=== PATIENT | female | born 1965 | race Caucasian/White ===

== ENCOUNTER 2018-11-26 16:29 | Emergency (ER) | payer BC, SELFPAY ==
[2018-11-26] MEDS ORDERED: ALBUTEROL 2.5 MG/3 ML NEB SOL ONE (17:05)
[2018-11-26] MEDS ORDERED: IPRATROPIUM BROM 0.5MG/2.5ML ONE (17:06)
[2018-11-26] MEDS ORDERED: predniSONE 20 MG TAB ONE (17:06)
--- NOTE | 2018-11-26 17:09 | RAD REPORT ---
EXAM DESCRIPTION: RAD - Chest Pa And Lat (2 Views) - 11/26/2018 5:04 pm CLINICAL HISTORY: Cough;SOB Chest pain. COMPARISON: No comparisons TECHNIQUE: PA and lateral views of the chest were obtained. FINDINGS: The lungs are hyperexpanded compatible with COPD. The heart is upper limit of normal in si ze. No fracture or aggressive bony process. IMPRESSION: COPD without acute process identified.
--- NOTE | 2018-11-26 17:23 | EKG ---
Test Date: 2018-11-26 Test Time: 16:53:58 Director Public Service: MENG MEASUREMENT RESULTS: Intervals: Rate: 89 MT: 118 QRSD: 88 QT: 362 QTc: 440 [place]: P: 27 MT: 118 QRS: 93 T: 71 INTERPRETIVE STATEMENTS: Normal sinus rhythm Rightward axis Borderline ECG No previous ECG available for comparison Electronically Signed On 11-26-18 17:23:20 SMALL ANIMAL VETERINARIAN by Jurgen Zarate
[2018-11-26 17:49] LABS: Absolute Lymphocytes (CBC) 3.2 K/uL (0.7-4.9); Absolute Monocytes 0.6 K/uL (0.1-1.3); Absolute Neutrophil 5.5 K/uL (1.8-8.0); Basophils % 1.2 % (0-1.3); Eosinophils % 2.2 % (0-4.4); Hematocrit 44.8 % (36.0-45.0); Lymphocytes % 33.1 % (15.3-44.8); Monocytes % 6.6 % (3.3-12.3); RBC Red Blood Cell Count 5.28 M/uL (3.86-4.86)
[2018-11-26 17:50] LABS: Protime INR 1.03
[2018-11-26 17:51] LABS: ALT/SGPT 21 U/L (12-78); AST/SGOT 12 U/L (15-37); Albumin 4.1 g/dL (3.4-5.0); Alkaline Phosphatase 85 U/L (45-117); BUN Blood Urea Nitrogen 14 mg/dL (7-18); Bicarbonate 25 mmol/L (21-32); Bilirubin Direct < 0.1 mg/dL (0-0.2); Bilirubin Total 0.3 mg/dL (0.2-1.0); Glucose Level 94 mg/dL (74-106); Magnesium 2.1 mg/dL (1.8-2.4); NT PRO-BNP 60 pg/mL (<125); Potassium 3.5 mmol/L (3.5-5.1); Sodium Level 138 mmol/L (136-145); Troponin (Emerg Dept Use Only) < 0.02 ng/mL (0.0-0.045)
--- NOTE | 2018-11-26 19:12 | ER ---
Nurse's Notes [facility] Name: Neetu Mcconnell Age: 53 yrs Sex: Female : 1965 Arrival Date: 11/26/2018 Time: 16:33 Bed 20 Private MD: None, None Diagnosis: Chronic obstructive pulmonary disease with (acute) exacerbation Presentation: 11/26 16:46 Presenting complaint: Patient states: i have this cough for a couple of days now, hard hj cough; denies fever and chills; reports being sore in chest area from coughing;. Transition of care: patient was not received from another setting of care. Onset of symptoms was November 26, 2018. Risk Assessment: Do you want to hurt yourself or someone else? Patient reports no desire to harm self or others. Initial Sepsis Screen: Does the patient meet any 2 criteria? Yes Does the patient have a suspected source of infection? Yes:. Care prior to arrival: None. 16:46 Method Of Arrival: Ambulatory 16:46 Acuity: JC 3 hj Triage Assessment: 16:49 General: Appears in no apparent distress. uncomfortable, Behavior is calm, cooperative, hj appropriate for age. Respiratory: Reports cough that is Onset: The symptoms/episode began/occurred couple of days now;, the patient has mild shortness of breath. 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 - Social history:: Smoking status: Patient uses tobacco products, smokes one pack cigarettes per day. Patient/guardian denies using alcohol. - Ebola Screening: : Patient negative for fever greater than or equal to 101.5 degrees Fahrenheit, and additional compatible Ebola Virus Disease symptoms Patient denies exposure to infectious person Patient denies travel to an Ebola-affected area in the 21 days before illness onset. Screenin:48 Abuse screen: Denies threats or abuse. Denies injuries from another. Nutritional hj screening: No deficits noted. Tuberculosis screening: No symptoms or risk factors identified. Fall Risk. Assessment: 16:48 Pain: Complains of pain in chest. Cardiovascular: Rhythm is regular. Respiratory: hj Airway is patent Respiratory effort is even, unlabored, Respiratory pattern is regular, symmetrical, 16:48 General: Appears in no apparent distress. uncomfortable, Behavior is calm, cooperative, hj appropriate for age. Neuro: Level of Consciousness is awake, alert, obeys commands, Oriented to person, place, time, situation, Appropriate for age. GI: No signs and/or symptoms were reported involving the gastrointestinal system. : No signs and/or symptoms were reported regarding the genitourinary system. EENT: No signs and/or symptoms were reported regarding the EENT system. Derm: No signs and/or symptoms reported regarding the dermatologic system. Musculoskeletal: No signs and/or symptoms reported regarding the musculoskeletal system. 18:55 Reassessment: Patient and/or family updated on plan of care and expected duration. Pain hj level reassessed. Patient is alert, oriented x 3, equal unlabored respirations, skin warm/dry/pink. Patient states feeling better. Patient states symptoms have improved. Vital Signs: 16:45 BP 127 / 73; Pulse 89; Resp 18; Temp 98.6(O); Pulse Ox 97% on R/A; Weight 63.5 kg; hj Height 5 ft. 7 in. (170.18 cm); 17:32 BP 116 / 69; Pulse 90; Resp 18; Pulse Ox 97% on R/A; hj 18:55 BP 118 / 70; Pulse 92; Resp 18; Pulse Ox 98% on R/A; hj 20:32 BP 132 / 62; Pulse 93; Resp 20; Temp 98.4(O); Pulse Ox 94% on R/A; Pain 3/10; fc 16:45 Body Mass Index 21.93 (63.50 kg, 170.18 cm) ED Course: 16:33 Patient arrived in ED. mr 16:33 None, None is Private Physician. mr 16:42 Navarro Arias PA is PHCP. cp 16:42 Katelin Leon MD is Attending Physician. cp 16:45 Adan Arthur RN is Primary Nurse. hj 16:47 Triage completed. hj 16:50 Arm band placed on right wrist. hj 16:50 Patient has correct armband on for positive identification. Bed in low position. Call hj light in reach. Side rails up X 1. Adult w/ patient. 17:01 EKG done, by breeder hen service technician. reviewed by Navarro GRANGER. sm3 17:08 XRAY Chest Pa And Lat (2 Views) In Process Unspecified. EDMS 17:24 Influenza Screen (a \T\ B) Sent. pc1 17:24 Initial lab(s) drawn, by me, sent to lab. Inserted saline lock: 20 gauge in right hj forearm, using aseptic technique. Blood collected. 20:34 No provider procedures requiring assistance completed. IV discontinued, intact, fc bleeding controlled, No redness/swelling at site. Pressure dressing applied. Administered Medications: 16:50 Drug: Albuterol - atroVENT (3:1) (2.5 mg - 0.5 mg) 3 ml Route: Nebulizer; 17:30 Follow up: Response: No adverse reaction pc1 16:50 Drug: predniSONE 60 mg Route: PO; 17:29 Follow up: Response: No adverse reaction pc1 Outcome: 19:11 Discharge ordered by MD. cp 20:34 Discharged to home ambulatory. 20:34 Condition: good 20:34 Discharge instructions given to patient, Instructed on discharge instructions, follow up and referral plans. medication usage, Demonstrated understanding of instructions, follow-up care, medications, Prescriptions given X 3. 20:36 Patient left the ED. fc Signatures: Dispatcher [employer] EDUT Shanna BocanegraAna, RN RN Adan Arthur RN RN Navarro Arias PA PA cp Montes, Shakira 3 Abel Bro, RN RN pc1 Corrections: (The following items were deleted from the chart) 17:32 16:45 BP 116 / 69; Pulse 90bpm; Resp 18bpm; Pulse Ox 97% RA; hj hj
--- NOTE | 2018-11-26 19:12 | EDPHYS ---
Physician Documentation [facility] Name: Neetu Mcconnell Age: 53 yrs Sex: Female : 1965 Arrival Date: 11/26/2018 Time: 16:33 Bed 20 Private MD: None, None ED Physician Katelin Leon HPI: 11/26 17:00 This 53 yrs old Female presents to ER via Ambulatory with complaints of cp Breathing Difficulty. 17:00 The patient has shortness of breath with light activity. Onset: The symptoms/episode cp began/occurred 2 day(s) ago. Duration: The symptoms are continuous. Associated signs and symptoms: Pertinent positives: chest pain, non-productive cough, Pertinent negatives: diaphoresis, dizziness, fever, hemoptysis, visual changes, vomiting, weakness. Severity of symptoms: in the emergency department the symptoms are unchanged despite home interventions. 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 - Social history:: Smoking status: Patient uses tobacco products, smokes one pack cigarettes per day. Patient/guardian denies using alcohol. - Ebola Screening: : Patient negative for fever greater than or equal to 101.5 degrees Fahrenheit, and additional compatible Ebola Virus Disease symptoms Patient denies exposure to infectious person Patient denies travel to an Ebola-affected area in the 21 days before illness onset. ROS: 17:05 Constitutional: Negative for body aches, chills, fever, poor PO intake. cp 17:05 Eyes: Negative for injury, pain, redness, and discharge. cp 17:05 ENT: Negative for drainage from ear(s), ear pain, sore throat, difficulty swallowing, difficulty handling secretions, hoarseness. 17:05 Neck: Negative for pain with movement, pain at rest, stiffness, tenderness, bony tenderness. 17:05 Cardiovascular: Positive for chest pain, with cough, Negative for edema, orthopnea, palpitations. 17:05 Respiratory: Positive for cough, with no reported sputum, shortness of breath, on exertion. wheezing, Negative for hemoptysis. 17:05 Abdomen/GI: Negative for abdominal pain, nausea, vomiting, and diarrhea, anorexia, black/tarry stool, rectal bleeding. 17:05 Back: Negative for pain at rest, pain with movement, radiated pain. 17:05 : Negative for urinary symptoms. 17:05 Skin: Negative for cellulitis, rash. 17:05 Neuro: Negative for altered mental status, dizziness, headache, syncope, near syncope, weakness. 17:05 All other systems are negative. Exam: 17:10 Constitutional: The patient appears in no acute distress, alert, awake, cp non-diaphoretic, non-toxic, well developed, well nourished. 17:10 Head/Face: Normocephalic, atraumatic. Eyes: Pupils equal round and reactive to light, cp extra-ocular motions intact. Lids and lashes normal. Conjunctiva and sclera are non-icteric and not injected. Cornea within normal limits. Periorbital areas with no swelling, redness, or edema. 17:10 ENT: External ear(s): are unremarkable, Ear canal(s): are normal, clear, TM's: bulging, is not appreciated, bilaterally, dullness, bilaterally, erythema, is not appreciated, bilaterally, Nose: is normal, Mouth: Lips: moist, Oral mucosa: moist, Posterior pharynx: Airway: no evidence of obstruction, patent, Tonsils: no enlargement, no exudate, Uvula: midline, swelling, is not appreciated, erythema, that is mild, exudate, is not appreciated. 17:10 Neck: ROM/movement: is normal, is supple, without pain, no range of motions limitations, no meningismus, no nuchal rigidity. 17:10 Chest/axilla: Inspection: normal, Palpation: is normal, no crepitus, no tenderness. 17:10 Cardiovascular: Rate: normal, Rhythm: regular, Edema: is not appreciated, JVD: is not appreciated. 17:10 Respiratory: the patient does not display signs of respiratory distress, Respirations: normal, no use of accessory muscles, no retractions, no splinting, no tachypnea, labored breathing, is not present, Breath sounds: decreased breath sounds, that are mild, throughout, rhonchi, are not appreciated, stridor, is not appreciated, wheezing: expiratory that is mild, is heard diffusely. 17:10 Abdomen/GI: Inspection: abdomen appears normal, Bowel sounds: active, all quadrants, Palpation: abdomen is soft and non-tender, in all quadrants. 17:10 Back: pain, is absent, ROM is normal. 17:10 Skin: cellulitis, is not appreciated, no rash present. 17:10 Neuro: Orientation: to person, place \T\ time. Mentation: is normal, Cerebellar function: is grossly normal, Motor: moves all fours, strength is normal, Sensation: is normal. 17:20 ECG was reviewed by the Attending Physician. Vital Signs: 16:45 BP 127 / 73; Pulse 89; Resp 18; Temp 98.6(O); Pulse Ox 97% on R/A; Weight 63.5 kg; hj Height 5 ft. 7 in. (170.18 cm); 17:32 BP 116 / 69; Pulse 90; Resp 18; Pulse Ox 97% on R/A; hj 18:55 BP 118 / 70; Pulse 92; Resp 18; Pulse Ox 98% on R/A; hj 20:32 BP 132 / 62; Pulse 93; Resp 20; Temp 98.4(O); Pulse Ox 94% on R/A; Pain 3/10; fc 16:45 Body Mass Index 21.93 (63.50 kg, 170.18 cm) MDM: 16:42 Patient medically screened. cp 17:00 Differential diagnosis: asthma, Bronchitis CHF exacerbation, Chronic Obstructive cp Pulmonary Disease Myocardial Infarction pneumonia, Pneumothorax pulmonary edema, Pulmonary Embolism Unstable Angina. 19:10 Data reviewed: vital signs, nurses notes, lab test result(s), EKG, radiologic studies, cp plain films. 19:10 Test interpretation: by ED physician or midlevel provider: ECG, plain radiologic cp studies. Counseling: I had a detailed discussion with the patient and/or guardian regarding: the historical points, exam findings, and any diagnostic results supporting the discharge/admit diagnosis, lab results, radiology results, the need for outpatient follow up, a family practitioner, to return to the emergency department if symptoms worsen or persist or if there are any questions or concerns that arise at home. Response to treatment: the patient's symptoms have markedly improved after treatment, and as a result, I will discharge patient. 11/26 16:48 Order name: Basic Metabolic Panel; Complete Time: 17:57 cp 02/11 17:58 Interpretation: Normal except: GFR 68. cp 02/ 16:48 Order name: CBC with Diff; Complete Time: 17:57 cp 02/11 17:58 Interpretation: Normal except: RBC 5.28; MCV 84.9; MCH 27.8. cp 02/ 16:48 Order name: LFT's; Complete Time: 17:57 cp 11/26 17:59 Interpretation: Normal except: AST 12; GLOB 3.9. cp / 16:48 Order name: Magnesium; Complete Time: 17:57 cp / 16:48 Order name: NT PRO-BNP; Complete Time: 17:57 cp 11/26 18:35 Interpretation: Within normal limits: NT PRO-BNP 60. cp / 16:48 Order name: PT-INR; Complete Time: 17:57 cp 11/26 16:48 Order name: Troponin (emerg Dept Use Only); Complete Time: 17:57 cp 11/26 18:35 Interpretation: TROPED < 0.02; Reviewed. 11/26 16:48 Order name: EKG; Complete Time: 17:01 cp 11/26 16:48 Order name: Cardiac monitoring; Complete Time: 16:50 cp 11/26 16:49 Order name: Influenza Screen (a \T\ B); Complete Time: 17:57 cp 11/26 16:49 Order name: XRAY Chest Pa And Lat (2 Views); Complete Time: 17:45 cp 11/26 17:45 Interpretation: Report reviewed. 11/26 16:48 Order name: EKG - Nurse/Tech; Complete Time: 16:53 cp 11/26 16:48 Order name: IV Saline Lock; Complete Time: 17:25 cp 11/26 16:48 Order name: Labs collected and sent; Complete Time: 17:24 cp / 16:48 Order name: O2 Per Protocol; Complete Time: 16:51 cp 11/26 16:48 Order name: O2 Sat Monitoring; Complete Time: 16:51 cp EC:20 Rate is 89 beats/min. Rhythm is regular. [place] interval is normal. QRS interval is normal. cp QT interval is normal. Interpreted by me. Reviewed by me. Administered Medications: 16:50 Drug: Albuterol - atroVENT (3:1) (2.5 mg - 0.5 mg) 3 ml Route: Nebulizer; 17:30 Follow up: Response: No adverse reaction pc1 16:50 Drug: predniSONE 60 mg Route: PO; hj 17:29 Follow up: Response: No adverse reaction pc1 Disposition: 11/26/18 19:11 Discharged to Home. Impression: Chronic obstructive pulmonary disease with (acute) exacerbation. - Condition is Stable. - Discharge Instructions: How to Use an Inhaler, Chronic Obstructive Pulmonary Disease Exacerbation. - Prescriptions for Tessalon Perles 100 mg Oral Capsule - take 1 capsule by ORAL route every 8 hours As needed; 20 capsule. Prednisone 20 mg Oral Tablet - take 2 tablet by ORAL route once daily for 5 days; 10 tablet. Albuterol Sulfate 90 mcg/actuation - inhale 1-2 puff by INHALATION route every 4-6 hours; 1 Inhaler. - Medication Reconciliation Form, Thank You Letter, Antibiotic Education, Prescription Opioid Use form. - Follow up: Private Physician; When: 2 - 3 days; Reason: Recheck today's complaints. - Problem is new. - Symptoms have improved. Addendum: 11/30/2018 19:07 Co-signature as Attending Physician, Katelin Leon MD. m a2 Signatures: Dispatcher [employer] [facility] Ana Puga RN RN fc Adan Arthur RN RN Navarro Arias PA PA cp Katelin Leon MD MD ma2 Abel Bro RN pc1 Corrections: (The following items were deleted from the chart) 11/26 17:08 17:01 Chest Single View+RAD.RAD.BRZ ordered. [facility] 20:36 19:11 11/26/2018 19:11 Discharged to Home. Impression: Chronic obstructive pulmonary fc disease with (acute) exacerbation. Condition is Stable. Forms are Medication Reconciliation Form, Thank You Letter, Antibiotic Education, Prescription Opioid Use. Follow up: Private Physician; When: 2 - 3 days; Reason: Recheck today's complaints. Problem is new. Symptoms have improved. cp
[2018-11-26 21:22] VITALS: BP 132/62; TEMP 98.4; O2SAT 94
== END 2018-11-26 20:36 | disposition home or self-care (01) ==
LOC: ER 16:29
DX: J44.1 Chronic obstructive pulmonary disease with (acute) exacerbation (principal); F17.210 Nicotine dependence, cigarettes, uncomplicated
CPT/HCPCS: 36415; 71046; 80048; 80076; 83735; 83880; 84484; 85025; 85610; 87804; 93005; 94640; 99284; J7512

== ENCOUNTER 2025-02-03 09:24 | Emergency (ER) | payer SELFPAY ==
--- OUTSIDE RECORDS SUMMARY | 2025-02-03 09:27 | XMS REPORT | Continuity of Care Document ---
Author Name Unknown Address [address] [place] [address] [place] [id number] Care Team Providers Care Spa Host Name Role Phone [email or web address] Attending Clinician Unavaila ble [email or web address] Admitting Clinician Unavaila ble Encounters Start Date/Time End Date/Time Encounter Type Admission Type Attending Clinicians Care Facility Care Department Encounter ID Source 2023-08-11 00:00:00 2023-08-11 00:00:00 Outpatient [email or web address] [facility] [id number] [facility]
[2025-02-03] MEDS ORDERED: ALBUTEROL 2.5 MG/3 ML NEB SOL ONE (09:38)
[2025-02-03] MEDS ORDERED: IPRATROPIUM BROM 0.5MG/2.5ML ONE (09:38)
[2025-02-03 10:10] LABS: Absolute Eosinophils 0.1 K/uL (0-0.5); Absolute Lymphocytes (CBC) 1.9 K/uL (0.7-4.9); Absolute Monocytes 0.6 K/uL (0.1-1.3); Absolute Neutrophil 7.2 K/uL (1.8-8.0); Basophils % 0.3 % (0-1.3); Eosinophils % 1.2 % (0-4.4); Hematocrit 41.6 % (36.0-45.0); Hemoglobin 14.1 g/dL (12.0-15.0); Lymphocytes % 18.7 % (15.3-44.8); MCH 28.9 pg (27.0-35.0); MPV 8.8 fL (7.6-11.3); Monocytes % 6.6 % (3.3-12.3); Neutrophils % 73.2 % (41.7-73.7); Nucleated Red Blood Cells % 0.1 % (0-0); Platelets 202 thou/uL (152-406); RBC Red Blood Cell Count 4.89 M/uL (3.86-4.86); Red Cell Distribution Width 13.2 % (12.1-15.2)
--- NOTE | 2025-02-03 10:17 | RAD REPORT ---
EXAM: Chest Single View HISTORY: 60 years Female DYSPNEA COMPARISON: 10/19/2023 FINDINGS: LUNGS/PLEURA: The lungs are clear. No pleural effusions or pneumothorax. No pulmonary edema. CARDIAC/MEDIASTINUM: The cardiac silhouette is within normal limits. UPPER ABDOMEN: No significant abnormality. BONES: No acute abnormality. LINES/TUBES/OTHER: N/A IMPRESSION: No evidence of acute cardiopulmonary disease.
[2025-02-03 10:21] LABS: PT Prothrombin Time 12.5 SECONDS (10-13.0); Protime INR 1.1
[2025-02-03 10:29] LABS: Influenza A Ag Negative; Influenza B Ag Negative; SARS-CoV-2 Antigen Rapid Res Negative (Negative)
[2025-02-03 11:19] LABS: Albumin 3.4 g/dL (3.4-5.0); Albumin/Globulin Ratio 0.9 (1.1-1.8); Bilirubin Direct 0.2 mg/dL (0-0.2); Bilirubin Indirect, Calculated 0.6 mg/dL (0.2-0.8); Bilirubin Total 0.8 mg/dL (0.2-1.0); Magnesium 2.1 mg/dL (1.6-2.4); Protein, Total 7.4 g/dL (6.4-8.2); Troponin High Sensitivity 4.2 pg/mL (<58.9)
--- NOTE | 2025-02-03 11:23 | ER ---
Nurse's Notes [facility] Name: Neetu Mcconnell Age: 60 yrs Sex: Female : 1965 Arrival Date: 02/03/2025 Time: 09:24 Bed 4 Private MD: Diagnosis: Acute bronchitis, unspecified Presentation: 02/03 09:35 Chief complaint: Patient states: she has been having a cough, and "not feeling well" ap3 since 01/30/25. Patient reports that she has been coughing so much is it making her stomach hurt as well. Coronavirus screen: Client presents with at least one sign or symptom that may indicate coronavirus-19. Ebola Screen: No symptoms or risks identified at this time. Initial Sepsis Screen: Does the patient meet any 2 criteria? No. Patient's initial sepsis screen is negative. Does the patient have a suspected source of infection? No. Patient's initial sepsis screen is negative. Risk Assessment: Do you want to hurt yourself or someone else? Patient reports no desire to harm self or others. Onset of symptoms was January 30, 2025. 09:35 Method Of Arrival: Ambulatory ap3 09:35 Acuity: JC 3 ap3 Triage Assessment: 09:36 General: Appears in no apparent distress. Behavior is calm, cooperative, appropriate ap3 for age. Pain: Complains of pain in abdomen. Neuro: Level of Consciousness is awake, alert, obeys commands, Oriented to person, place, time, situation, Appropriate for age. Cardiovascular: Patient's skin is warm and dry. Respiratory: Reports cough that is dry, Airway is patent Respiratory effort is even, unlabored, Onset: The symptoms/episode began/occurred gradually. 12:04 Respiratory: the patient has mild shortness of breath. cm10 Historical: - Allergies: 09:36 No Known Allergies; ap3 - Home Meds: 09:36 None [Active]; ap3 - PMHx: 09:36 None; ap3 - Immunization history:: Client reports receiving the 2nd dose of the Covid vaccine. - Infectious Disease History:: Denies. - Social history:: Smoking status: Patient reports the use of cigarette tobacco products, smokes one pack cigarettes per day. Screenin:37 [facility] ED Fall Risk Assessment (Adult) History of falling in the last 3 months, ap3 including since admission No falls in past 3 months (0 pts) Confusion or Disorientation No (0 pts) Intoxicated or Sedated No (0 pts) Impaired Gait No (0 pts) Mobility Assist Device Used No (0 pt) Altered Elimination No (0 pt) Score/Fall Risk Level 0 - 2 = Low Risk Oriented to surroundings, Maintained a safe environment, Educated pt \\T\\ family on fall prevention, incl call for assistance when getting out of bed, Assessed \\T\\ reinforced patient's understanding of fall precautions, Hourly rounding (assess needs \\T\\ fall precautionary measures) done, Used ambulatory aids as needed (educated on \\T\\ assisted with). Abuse screen: Denies threats or abuse. Nutritional screening: No deficits noted. Tuberculosis screening: No symptoms or risk factors identified. Assessment: 10:45 General: Appears in no apparent distress. comfortable, Behavior is calm, cooperative. cm10 Neuro: No deficits noted. Level of Consciousness is awake, alert, obeys commands, Oriented to person, place, time, situation, Appropriate for age. Cardiovascular: Rhythm is regular. Respiratory: Reports shortness of breath Airway is patent Respiratory effort is even, unlabored, Respiratory pattern is regular, symmetrical, Breath sounds with wheezes bilaterally. Derm: Skin is pink, warm \\T\\ dry. Musculoskeletal: No deficits noted. Range of motion: intact in all extremities. 11:45 Reassessment: Patient appears in no apparent distress at this time. Patient and/or cm10 family updated on plan of care and expected duration. Pain level reassessed. Patient is alert, oriented x 3, equal unlabored respirations, skin warm/dry/pink. Patient states feeling better. Patient states symptoms have improved. Vital Signs: 09:35 BP 128 / 77; Pulse 88; Resp 19; Temp 98.2(O); Pulse Ox 99% on R/A; Weight 57.61 kg (M); ap3 Height 5 ft. 7 in. ; 10:46 BP 111 / 60; Pulse 97; Resp 18; Pulse Ox 94% on R/A; cm10 11:45 BP 100 / 52; Pulse 96; Resp 18; Pulse Ox 97% ; cm10 09:35 Body Mass Index 19.89 (57.61 kg, 170.18 cm) ap3 ED Course: 09:26 Patient arrived in ED. im 09:28 Stacy Lamb PA-C is PHCP. sb4 09:28 Donnie Garcia MD is Attending Physician. sb4 09:35 Maritza Gruber, RN is Primary Nurse. jl7 09:36 Triage completed. ap3 09:38 Arm band placed on right wrist. ap3 10:06 Primary Nurse role handed off by Maritza Gruber, RN cm10 10:06 Mikayla Mendez, RN is Primary Nurse. cm10 10:06 Initial lab(s) drawn, by me, sent to lab. EKG done, by ED staff, reviewed by Stacy Lamb PA-C COVID swab sent to lab. Flu and/or RSV swab sent to lab. Missed attempt(s): 20 gauge in left antecubital area. Bleeding controlled, band aid applied, catheter tip intact. 10:13 XRAY Chest (1 view) In Process Unspecified. EDMS 10:42 Lab(s) recollected, by me, sent to lab. Inserted saline lock: 20 gauge in right cm10 forearm, using aseptic technique. Blood collected. Flushed with 10 mL NS. 10:46 Patient has correct armband on for positive identification. Placed in gown. Bed in low cm10 position. Call light in reach. Side rails up X 1. Client placed on continuous cardiac and pulse oximetry monitoring. NIBP monitoring applied. playground monitor on. 12:03 Provided Education on: Follow-up instructions. cm10 12:04 No provider procedures requiring assistance completed. IV discontinued, intact, cm10 bleeding controlled, No redness/swelling at site. Pressure dressing applied. Administered Medications: 10:08 Drug: DuoNeb Nebulize (3:1) (2.5 mg - 0.5 mg) 3 ml Nebulizer once Route: Nebulizer; jl7 10:30 Follow up: Response: No adverse reaction cm10 11:33 Drug: Potassium PO Effervescent Tablet 50 mEq PO once; dissolve in 4 ounces of water or aa5 juice Route: PO; 12:03 Follow up: Response: No adverse reaction cm10 Medication: 10:46 VIS not applicable for this client. cm10 Outcome: 11:23 Discharge ordered by . sb4 12:04 Discharged to home ambulatory, with significant other, cm10 12:04 Condition: good 12:04 Discharge instructions given to patient, Instructed on discharge instructions, follow up and referral plans. medication usage, Demonstrated understanding of instructions, follow-up care, medications, Prescriptions given X 3, 12:04 Patient left the ED. cm10 Signatures: Dispatcher [employer] EDMS Daysi Crabtree, RN RN [email or web address] Maritza Gruber RN RN [email or web address] Avis Ruiz RN RN [email or web address] Stacy Lamb, PA-C PA-C [email or web address] Misa Egan Clarissa RN RN cm10
--- NOTE | 2025-02-03 11:23 | EDPHYS ---
Physician Documentation [facility] Name: Neetu Mcconnell Age: 60 yrs Sex: Female : 1965 Arrival Date: 02/03/2025 Time: 09:24 Bed 4 Private MD: ED Physician Donnie Garcia HPI: 02/03 09:49 This 60 yrs old Female presents to ER via Ambulatory with complaints of Flu Symptoms, sb4 Shortness Of Breath. 09:49 shortness of breath, dry cough, and malaise x 4 days. no fever or chills. no chest sb4 pain, n/v/d. denies sick contacts. does smoke daily, no official diagnosis of COPD, uses inhalers occasionally. Historical: - Allergies: 09:36 No Known Allergies; ap3 - Home Meds: 09:36 None [Active]; ap3 - PMHx: 09:36 None; ap3 - Immunization history:: Client reports receiving the 2nd dose of the Covid vaccine. - Infectious Disease History:: Denies. - Social history:: Smoking status: Patient reports the use of cigarette tobacco products, smokes one pack cigarettes per day. ROS: 09:49 Constitutional: Negative for fever, chills, and weight loss, sb4 09:49 Constitutional: Positive for malaise, 09:49 Respiratory: Positive for cough, with no reported sputum, shortness of breath, 09:49 All other systems are negative, Exam: 09:49 Constitutional: This is a well developed, well nourished patient who is awake, alert, sb4 and in no acute distress. Head/Face: Normocephalic, atraumatic. Eyes: Extra-ocular motions intact. Periorbital areas with no swelling, redness, or edema. ENT: Mucous membranes moist. Cardiovascular: Regular rate and rhythm with a normal S1 and S2. Respiratory: No increased work of breathing, no retractions or nasal flaring. Abdomen/GI: Soft, non-tender, no distension. Skin: Warm, dry with normal turgor. Normal color with no rashes, no lesions, and no evidence of cellulitis. Vital Signs: 09:35 BP 128 / 77; Pulse 88; Resp 19; Temp 98.2(O); Pulse Ox 99% on R/A; Weight 57.61 kg (M); ap3 Height 5 ft. 7 in. ; 10:46 BP 111 / 60; Pulse 97; Resp 18; Pulse Ox 94% on R/A; cm10 11:45 BP 100 / 52; Pulse 96; Resp 18; Pulse Ox 97% ; cm10 09:35 Body Mass Index 19.89 (57.61 kg, 170.18 cm) ap3 MDM: 09:28 Medical Screening Exam initiated sb4 10:09 Differential diagnosis: URI, bronchitis, pneumonia COPD. sb4 11:23 Data reviewed: vital signs, nurses notes, lab test result(s), EKG, radiologic studies, sb4 and as a result, I will discharge patient. Counseling: I had a detailed discussion with the patient and/or guardian regarding the historical points, exam findings, and any diagnostic results supporting the discharge/admit diagnosis, lab results, radiology results, the need for outpatient follow up, for definitive care, to return to the emergency department if symptoms worsen or persist or if there are any questions or concerns that arise at home. 02/03 09:34 Order name: Basic Metabolic Panel; Complete Time: 11:20 02/03 09:34 Order name: CBC with Diff; Complete Time: 10:13 02/03 09:34 Order name: LFT's; Complete Time: 11:20 02/03 09:34 Order name: Magnesium; Complete Time: 11:20 02/03 09:34 Order name: NT PRO-BNP; Complete Time: 11:20 02/03 09:34 Order name: PT-INR; Complete Time: 10:21 02/03 09:34 Order name: Troponin HS; Complete Time: 11:20 02/03 09:34 Order name: COVID-19 Ag + Flu A+B Ag; Complete Time: 10:31 02/03 09:34 Order name: XRAY Chest (1 view); Complete Time: 10:18 02/03 09:34 Order name: Cardiac monitoring; Complete Time: 10:05 02/03 09:34 Order name: EKG - Nurse/Tech; Complete Time: 10:05 02/03 09:34 Order name: IV Saline Lock; Complete Time: 10:41 02/03 09:34 Order name: Labs collected and sent; Complete Time: 10:05 sb4 02/03 09:34 Order name: O2 Per Protocol; Complete Time: 10:05 sb4 02/03 09:34 Order name: O2 Sat Monitoring; Complete Time: 10:05 sb4 02/03 10:24 Order name: Labs - recollect needed: please recollect green top; Complete Time: 10:41 em1 EC:52 Rate is 77 beats/min. Rhythm is regular, Normal Sinus Rhythm. NM interval is normal at sb4 136 msec. QRS interval is normal at 92 msec. QT interval is normal at 386 msec. No Q waves. T waves are Normal. No ST changes noted. Clinical impression: No evidence of ischemia. Interpreted by me. Reviewed by me. Administered Medications: 10:08 Drug: DuoNeb Nebulize (3:1) (2.5 mg - 0.5 mg) 3 ml Nebulizer once Route: Nebulizer; jl7 10:30 Follow up: Response: No adverse reaction cm10 11:33 Drug: Potassium PO Effervescent Tablet 50 mEq PO once; dissolve in 4 ounces of water or aa5 juice Route: PO; 12:03 Follow up: Response: No adverse reaction cm10 Disposition: 12:13 Co-signature as Attending Physician, Donnie Garcia MD I reviewed the patient's care rt provided by the Advanced Practice Provider and agree with the diagnosis and treatment plan. Disposition Summary: 02/03/25 11:23 Discharge Ordered Notes: Location: Home sb4 Problem: new sb4 Symptoms: have improved sb4 Condition: Stable sb4 Diagnosis - Acute bronchitis, unspecified sb4 Followup: sb4 - With: Emergency Department - When: As needed - Reason: Trouble breathing, Worsening of condition Discharge Instructions: - Discharge Summary Sheet sb4 - Acute Bronchitis, Adult sb4 - Potassium Content of Foods sb4 Forms: - Patient Portal Instructions sb4 - Leadership Thank You Letter sb4 - Work release form cm10 Prescriptions: - Tessalon Perles 100 mg Oral Capsule - take 1 capsule ORAL route every 8 hours As needed; 15 capsule; Refills: 0, sb4 Product Selection Permitted - Albuterol Sulfate 2.5 mg /3 mL (0.083 %) Inhalation Solution for Nebulization - inhale 1 unit NEBULIZATION route every 8 hours As needed; 20 unit; Refills: 0, sb4 Product Selection Permitted - Prednisone 20 mg Oral Tablet - take 1 tablet ORAL route every 12 hours for 5 days; 10 tablet; Refills: 0, sb4 Product Selection Permitted Signatures: Dispatcher [employer] ED Andrea Leo em1 Daysi Crabtree, RN RN aa5 Maritza Gruber, RN RN jl7 Avis Ruiz RN RN ap3 Stacy Lamb, PA-C PA-C sb4 Donnie Garcia MD MD rt Mikayla Mendez RN cm10 Corrections: (The following items were deleted from the chart) 09:35 09:35 BASIC METABOLIC PANEL+C.LAB.BRZ ordered. EDMS EDMS 09:35 09:35 CBC+H.LAB.BRZ ordered. EDMS EDMS 09:35 09:35 HEPATIC FUNCTION+C.LAB.BRZ ordered. EDMS EDMS 09:35 09:35 MAGNESIUM+C.LAB.BRZ ordered. EDMS EDMS 09:35 09:35 PROBNP+C.LAB.BRZ ordered. EDMS EDMS 09:35 09:35 PROTIME (+INR)+COAG.LAB.BRZ ordered. EDMS EDMS 09:35 09:35 Troponin High Sensitivity+C.LAB.BRZ ordered. EDMS EDMS 09:35 09:35 COVID-19 Ag + Flu A+B Ag+I.LAB.BRZ ordered. EDMS EDMS 09:35 09:35 Chest Single View+RAD.RAD.BRZ ordered. EDMS EDMS
[2025-02-03] MEDS ORDERED: POTASSIUM 25 MEQ EFFERV TAB ONE (11:25)
[2025-02-03 12:11] VITALS: TEMP 98.2
[2025-02-03 12:13] VITALS: BP 100/52; O2SAT 97
--- NOTE | 2025-02-05 12:43 | EKG ---
Test Date: 2025-02-03 Test Time: 09:47:28 [employer]: CAMILA MEASUREMENT RESULTS: Intervals: Rate: 77 AK: 136 QRSD: 92 QT: 386 QTc: 436 [place]: P: 89 AK: 136 QRS: 94 T: 78 INTERPRETIVE STATEMENTS: Normal sinus rhythm Rightward axis Borderline ECG Compared to ECG 11/26/2018 16:53:58 No significant changes Electronically Signed On 02-05-25 12:37:46 CDT by Landen Magdaleno
== END 2025-02-03 12:04 | disposition home or self-care (01) ==
LOC: ER 09:24
DX: J20.9 Acute bronchitis, unspecified (principal); F17.210 Nicotine dependence, cigarettes, uncomplicated; Z11.52 Encounter for screening for COVID-19
CPT/HCPCS: 36415; 71045; 80048; 80076; 83735; 83880; 84484; 85025; 85610; 87428; 93005; 99285; J7613; J7644